=== PATIENT | female | born 1955 | race Caucasian/White ===

== ENCOUNTER 2017-12-29 08:49 | Emergency (ER) | payer BC ==
[2017-12-29] MEDS ORDERED: traMADol HCl 50 MG TAB ONE (09:43)
[2017-12-29] MEDS ORDERED: Ibuprofen 800 MG TAB ONE (09:43)
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
--- NOTE | 2017-12-29 10:50 | RAD ---
LEFT SHOULDER 3 VIEWS: Date: 12/29/17 FINDINGS: No fracture, dislocation, or AC joint widening seen. Scapula appears intact, as do the visible adjace nt ribs. The left lung appears clear. IMPRESSION: No acute findings. POS: HOME
--- NOTE | 2017-12-29 10:51 | RAD ---
CHEST 2 VIEWS: Date: 12/29/17 No prior films available for comparison. FINDINGS: AP and lateral views done on a stretcher reveal a normal sized heart. There is no mediastinal widenin g or shift. A mild thoracolumbar scoliosis is present, but no fractures are appreciated. The bony tho rax appears intact. IMPRESSION: No acute thoracic findings. POS: HOME
== END 2017-12-29 09:56 | disposition home or self-care (01) ==
LOC: BURERS 08:49
DX: S40.012A Contusion of left shoulder, initial encounter (principal); S00.83XA Contusion of other part of head, initial encounter; S00.03XA Contusion of scalp, initial encounter; E03.9 Hypothyroidism, unspecified; I10 Essential (primary) hypertension; Z79.899 Other long term (current) drug therapy; V40.5XXA Car driver injured in collision with pedestrian or animal in traffic accident, initial encounter
CPT/HCPCS: 70450; 70486; 71046; 72125; G0390